=== PATIENT | female | born 1965 | race Caucasian/White ===

== ENCOUNTER 2019-11-22 23:01 | Emergency (ER) | payer SELFPAY ==
[~2019-11-22] VITALS: Ht 165.1 cm; Wt 52.3 kg
[2019-11-22] MEDS ORDERED: KETOROLAC 30 MG/1 ML ONE (23:30)
[2019-11-22] MEDS ORDERED: KETOROLAC 30 MG/1 ML IM ONE (23:30)
--- NOTE | 2019-11-22 23:52 | NUR ---
PT [employer] FROM HOME FOR CP THAT STARTED 2 DAYS AGO. PT STATES SHE'S BEEN TAKING CARE OF HER FATHER AND THINKS CP MIGHT BE RELATED TO STRESS. PT TALKING AND LAUGHING ON PHONE WITH BROTHER. NO SIGNS OF ACUTE DISTRESS, PT ON CARDIAC, BP AND O2 MONITORS. SIDE RAILS UP AND CALL LIGHT WITHIN REACH.
--- NOTE | 2019-11-23 00:03 | NUR ---
CONFIRMED WITH ERP THAT NO LABS NEED TO BE DRAWN.
[2019-11-23 00:06] VITALS: BP 132/91
--- NOTE | 2019-11-23 00:07 | NUR ---
PT D/C'D SELF FROM ALL MONITORS, GOT SELF DRESSED, AND WALKED OUT OF ED. PT WAS GIVEN D/C PACKET SHE WAS LEAVING, ALL QUESTIONS ANSERED. PT GAVE STATEMENTS OF PRAISE ABOUT THIS HOSPITAL AND RN SHE WAS LEAVING.
--- NOTE | 2019-11-23 00:09 | NUR ---
EKG DONE BY TECH. JOSE ANTONIO
== END 2019-11-23 00:10 ==
LOC: ED 23:15
DX: R07.89 Other chest pain (principal); I10 Essential (primary) hypertension; F17.210 Nicotine dependence, cigarettes, uncomplicated
CPT/HCPCS: 93005; 96372; 99283; 99406; J1885; 99285

== ENCOUNTER 2020-08-01 10:52 | Emergency (ER) | payer MEDICAID ==
[~2020-08-01] VITALS: Ht 165.1 cm; Wt 50.0 kg
[2020-08-01 10:58] VITALS: BP 161/105
[2020-08-01] MEDS ORDERED: SILVER SULF. CRM 1% , 25GM TP ONE (11:30)
[2020-08-01] MEDS ORDERED: KETOROLAC 30 MG/1 ML IM ONE (11:30)
[2020-08-01] MEDS ORDERED: KETOROLAC 30 MG/1 ML ONE (11:49)
[2020-08-01] MEDS ORDERED: SILVER SULF. CRM 1% , 25GM ONE (11:49)
== END 2020-08-01 12:07 | disposition home or self-care (01) ==
LOC: ED 10:56
DX: T25.222A Burn of second degree of left foot, initial encounter (principal); T31.0 Burns involving less than 10% of body surface; L03.116 Cellulitis of left lower limb; I10 Essential (primary) hypertension; Y27.8XXA Contact with other hot objects, undetermined intent, initial encounter; Y93.89 Activity, other specified; Y92.89 Other specified places as the place of occurrence of the external cause; Y99.8 Other external cause status
CPT/HCPCS: 16020; 96372; 99283; J1885

== ENCOUNTER 2020-08-14 13:29 | Emergency (ER) | payer MEDICAID ==
[~2020-08-14] VITALS: Ht 165.1 cm; Wt 57.0 kg
[2020-08-14 13:40] VITALS: BP 173/110
[2020-08-14] MEDS ORDERED: SILVER SULF. CRM 1% , 25GM TP ONE (14:00)
[2020-08-14 14:19] LABS: BASOPHILS % (AUTO) 1 % (0-1); EOSINOPHILS % (AUTO) 1 % (1-7); LYMPHOCYTES % (AUTO) 18 % (22-44); MEAN CORPUSCULAR HEMOGLOBIN 35.9 pg (27.0-34.8); MEAN CORPUSCULAR HGB CONC 34.8 g/dL (32.4-35.8); MEAN PLATELET VOLUME 7.2 fL (7.4-10.4); MONOCYTES % (AUTO) 7 % (2-9); NEUTROPHILS % (AUTO) 74 % (42-75); PLATELET COUNT 239 x10^3/uL (130-400); RED BLOOD COUNT 4.28 x10^6/uL (3.82-5.3); RED CELL DISTRIBUTION WIDTH 12.4 % (9.6-15.2)
[2020-08-14 14:21] LABS: MD NO
[2020-08-14 14:26] LABS: ALBUMIN 4.3 g/dL (3.4-5.0); ANION GAP 5 mmol/L (5-15); CHLORIDE 107 mmol/L (98-107); CREATININE 0.61 mg/dL (0.55-1.02)
--- NOTE | 2020-08-14 15:09 | NUR ---
shampoo person: pt form lobby to room [id number]
[2020-08-14] MEDS ORDERED: SILVER SULF. CRM 1% , 25GM ONE (15:37)
[2020-08-14] MEDS ORDERED: KETOROLAC 30 MG/1 ML IM ONE (16:00)
[2020-08-14] MEDS ORDERED: KETOROLAC 30 MG/1 ML ONE (16:12)
== END 2020-08-14 16:29 | disposition home or self-care (01) ==
LOC: ED 15:18
DX: T25.222D Burn of second degree of left foot, subsequent encounter (principal); T31.0 Burns involving less than 10% of body surface; I10 Essential (primary) hypertension; G40.909 Epilepsy, unspecified, not intractable, without status epilepticus; X08.8XXD Exposure to other specified smoke, fire and flames, subsequent encounter
CPT/HCPCS: 36415; 73630; 80048; 82040; 85025; 96372; 99284; J1885